=== PATIENT | male | born 1970 | race Caucasian/White ===

== ENCOUNTER 2025-05-24 19:05 | Emergency (ER) | payer OTHER ==
[2025-05-24 19:23] VITALS: RESP 18; TEMP 98.1
[2025-05-24 19:25] VITALS: O2SAT 96
--- NOTE | 2025-05-24 19:55 | ERPHSYRPT ---
- History of Present Illness Time Seen by Provider: 05/24/25 19:40 Source: patient Exam Limitations: no limitations Patient Subjective Stated Complaint: c/o rash Triage Nursing Assessment: patient brought to ED with c/o rash that started after he was outside three days ago pulling weeds. patiemt has reddenned small nodules on lateral left lower leg, medial right lower leg, medial bilat. arms. patient started he has been putting on hydrocortisone cream on the rash but it hasn't subsided. gait steady, slightly hypertensive, denies pain, denies feeling short of breath. Physician History: Patient is a 54-year-old male presents to our ED for evaluation of a pruritic rash. Patient states he was outside pulling weeds 3 days ago. Shortly thereafter patient observed a red pruritic rash on his left lower leg. Patient observed that the rash is now on his upper arms. Patient applied topical hydrocortisone cream with little improvement. No other complaints. No difficulty breathing. No chest pain or shortness of breath. No nausea vomiting or diaphoresis. Symptoms are mild to moderate in intensity. Patient does not know exactly when he was exposed to possibly poison sara. Patient otherwise feels well. He voices no other complaints or concerns at this time. Portions of this note were created with voice recognition technology. There may be grammatical, spelling, punctuation or sound alike errors Timing/Duration: day(s) (3 days ago) Severity: moderate Modifying Factors: Improves With: nothing Associated Symptoms: denies symptoms Allergies/Adverse Reactions: No Known Drug Allergies Allergy (Verified 05/24/25 19:10) Home Medications: Atorvastatin Calcium [Lipitor] 20 mg PO HS 05/24/25 [History] Lisinopril/Hydrochlorothiazide [Lisinopril-Hctz 20-12.5 mg Tab] 1 tab PO DAILY 05/24/25 [History] Hx Tetanus, Diphtheria Vaccination/Date Given: No Hx Influenza Vaccination/Date Given: No Hx Pneumococcal Vaccination/Date Given: No Travel Risk - International Travel Have you traveled outside of the country in past 3 weeks: No - Emerging Infectious Disease Are you exhibiting symptoms associated with any current EIDs: No - Review of Systems Constitutional: No Symptoms, No Fever, No Chills Eyes: No Symptoms Ears, Nose, & Throat: No Symptoms Respiratory: No Symptoms, No Cough, No Dyspnea Cardiac: No Symptoms, No Chest Pain, No Edema, No Syncope Abdominal/Gastrointestinal: No Symptoms, No Abdominal Pain, No Nausea, No Vomiting, No Diarrhea Genitourinary Symptoms: No Symptoms, No Dysuria Musculoskeletal: No Symptoms, No Back Pain, No Neck Pain Skin: No Symptoms, Rash Neurological: No Symptoms, No Dizziness, No Focal Weakness, No Sensory Changes Psychological: No Symptoms Endocrine: No Symptoms Hematologic/Lymphatic: No Symptoms Immunological/Allergic: No Symptoms All Other Systems: Reviewed and Negative - Past Medical History Pertinent Past Medical History: Yes Cardiac History: High Cholesterol, Hypertension Respiratory History: Sleep Apnea Other Medical History: finger cyst on right index finger - Past Surgical History Past Surgical History: Yes Other Surgical History: right finger cyst removed - Social History Smoking Status: Never smoker Exposure to second hand smoke: No Drug Use: none - Social Determinants of Health Will the patient participate in the screening: Declined to provide - Nursing Vital Signs Nursing Vital Signs: Initial Vital Signs Temperature 98.1 F 05/24/25 19:12 Pulse Rate 69 05/24/25 19:12 Respiratory Rate 18 05/24/25 19:12 Blood Pressure 156/92 05/24/25 19:12 O2 Sat by Pulse Oximetry 98 05/24/25 19:12 Pain Scale Pain Intensity 0 - Physical Exam General Appearance: no apparent distress, alert Eye Exam: PERRL/EOMI, eyes nml inspection Ears, Nose, Throat Exam: normal ENT inspection, moist mucous membranes Neck Exam: normal inspection, full range of motion Respiratory Exam: normal breath sounds, lungs clear, airway intact, No respiratory distress Cardiovascular Exam: regular rate/rhythm, normal heart sounds, normal peripheral pulses Back Exam: normal inspection, normal range of motion, No CVA tenderness, No vertebral tenderness Extremity Exam: normal inspection, normal range of motion, pelvis stable, other (The involved extremity is neurovascular tact distally compartments are soft cap refill less than 2 seconds.) Neurologic Exam: alert, oriented x 3, cooperative, normal mood/affect, sensation nml, No motor deficits Skin Exam: normal color, warm, dry, other (Red pruritic rash at the lateral aspect of his left lower leg measuring approximately 8 cm x 4 cm overlying soft tissue intact. No signs of cellulitis no lymphangitis no fever.), No rash Lymphatic Exam: No adenopathy SpO2 Interpretation: normal SpO2: 96 O2 Delivery: Room Air - Course Nursing assessment & vital signs reviewed: Yes Ordered Tests: Medication Summary Discontinued Medications Generic Name Dose Route Start Last Admin Trade Name Yulisa PRN Reason Stop Dose Admin Famotidine 40 mg 05/24/25 19:52 05/24/25 19:57 Famotidine 20 Mg Tablet PO 05/24/25 19:53 40 mg STAT ONE Administration Famotidine Confirm 05/24/25 19:56 Famotidine 20 Mg Tablet Administered 05/24/25 19:57 Dose 40 mg .ROUTE .STK-MED ONE Prednisone 60 mg 05/24/25 19:51 05/24/25 19:57 Prednisone 20 Mg Tablet PO 05/24/25 19:52 60 mg STAT ONE Administration Prednisone Confirm 05/24/25 19:56 Prednisone 20 Mg Tablet Administered 05/24/25 19:57 Dose 60 mg .ROUTE .STK-MED ONE - Progress Progress: improved Progress Note: 54-year-old male presents to our ED for evaluation of exposure to possible poison sara possible sumac or oak exposure. Patient appears to have a contact dermatitis in his left lateral leg. The area is red hyperemic with an obvious palpable papular rash. No lymphangitis. No lymphadenopathy. No open or draining lesions. There are small patches of contact dermatitis in the upper extremities as well. The extremities are neurovascular tact distally compartments are soft cap refill less than 2 seconds. Patient received an oral dose of prednisone and Pepcid in our ED. A prescription for Pepcid and predn isone forwarded to patient's pharmacy. Patient can add Benadryl as needed for pruritus. No indication for antibiotics at this time. Patient agrees to follow-up with primary care doctor within 48 hours for reevaluation. He voices no other complaints or concerns at this time. Portions of this note were created with voice recognition technology. There may be grammatical, spelling, punctuation or sound alike errors Complexity of problem addressed is moderate acute complicated. No critical care time. Complexity of data reviewed and analyzed none. No specialized test ordered diagnosis made based on history and physical exam. Risk of complication and or risk of morbidity/mortality of patient management is moderate. A prescription for prednisone and famotidine forwarded to patient's pharmacy. Vital stable. Time spent to discharge patient is approximately 15 minutes. Plan of care established for shared decision making. No social determinants of health present to impede follow-up. Portions of this note were created with voice recognition technology. There may be grammatical, spelling, punctuation or sound alike errors 05/24/25 19:59 Counseled pt/family regarding: diagnosis, need for follow-up - Departure Departure Disposition: Home Clinical Impression: Contact dermatitis, Pruritic rash Condition: Stable Critical Care Time: No Referrals: MAI CAMARGO MD [Primary Care Provider, [facility]] - Follow up/PCP as directed Additional Instructions: Discharge/Care Plan ZELALEM STILES was seen on 05/24/25 in the Emergency Room. The patient was counseled regarding Diagnosis,Lab results, Imaging studies, need for follow up and when to return to the Emergency Room. Prescriptions given: Discharge Note I have spoken with the patient and/or caregivers. I have explained the patient's condition, diagnosis and treatment plan based on the information available to me at this time. I have answered the patient's and/or caregiver's questions and addressed any concerns. The patient and/or caregivers have as good understanding of the patient's diagnosis, condition and treatment plan as can be expected at this point. The vital signs have been stable. The patient's condition is stable and appropriate for discharge from the emergency department. The patient will pursue further outpatient evaluation with the primary care physician or other designated or consulting physician as outlined in the discharge instructions. The patient and/or caregivers are agreeable to this plan of care and follow-up instructions have been explained in detail. The patient and/or caregivers have received these instruction. The patient/and or caregivers are aware that any significant change in condition or worsening of symptoms should prompt an immediate return to this or the closest emergency department or call 911. Prescriptions: Prednisone 10 mg [Deltasone 10 mg] 40 mg PO DAILY 3 Days #12 tablet Famotidine 20 mg [Pepcid 20 MG] 20 mg PO BID 7 Days #14 tablet
[2025-05-24] MEDS ORDERED: Pepcid 20 MG ONE (19:56)
[2025-05-24] MEDS ORDERED: DELTASONE 20 MG ONE (19:56)
[2025-05-24] MEDS: Pepcid 20 MG PO ONE (19:57)
[2025-05-24] MEDS: DELTASONE 20 MG PO ONE (19:57)
[2025-05-24 20:07] VITALS: BP 143/79; PULSE 64
== END 2025-05-24 20:10 | disposition home or self-care (01) ==
LOC: ED 19:05
DX: L25.9 Unspecified contact dermatitis, unspecified cause (principal); L29.9 Pruritus, unspecified; I10 Essential (primary) hypertension; Z79.52 Long term (current) use of systemic steroids; Z79.899 Other long term (current) drug therapy